=== PATIENT | female | born 1990 ===

== ENCOUNTER 2017-12-11 11:00 | Emergency (ER) | payer BC ==
[2017-12-11 12:45] VITALS: BP 132/81
--- NOTE | 2017-12-11 14:09 | ED ---
Abdominal Pain/Female - HPI Summary HPI Summary: Patient presents to the with CC of right sided abdominal pain yesterday. There was no tenderness to the RLQ but more to the R side body, however she endorses lower abdominal pain bilaterally which is intermittent. She describes this as cramping and similar to her periods pains. She is 4 days late and states she had unprotected sex on 11/25/17. She endorses some nausea and light spotting x 4 days. Hx of kidney stone but denies any back pain or urinary symptoms. Currently asymptomatic. Denies fevers, sweats or chills. - History of Current Complaint Chief Complaint: UCGeneralIllness Stated Complaint: STOMACH,FEVER,NAUSEA Time Seen by Provider: 12/11/17 12:37 Hx Obtained From: Patient Hx Last Menstrual Period: 11/06/18 ?: No Onset/Duration: Sudden Onset Timing: Constant Severity Initially: Moderate Severity Currently: Moderate Pain Intensity: 3 Pain Scale Used: 0-10 Numeric Location: Diffuse, Suprapubic Radiates: No Character: Cramping Aggravating Factor(s): Nothing Alleviating Factor(s): Nothing Associated Signs and Symptoms: Positive: Nausea - Risk Factors Ectopic Risk Factor: Negative Ovarian Torsion Risk Factor: Negative Allergies/Adverse Reactions: Allergies Allergy/AdvReac Type Severity Reaction Status Date / Time Cefaclor [From [facility]] Allergy Unknown Verified 12/11/17 12:38 Reaction Details PMH/Surg Hx/FS Hx/Imm Hx Previously Healthy: Yes Endocrine/Hematology History: Denies: Hx Diabetes Cardiovascular History: Denies: Hx Hypertension, Hx Pacemaker/ICD History: Denies: Hx Dialysis, Hx Renal Disease Sensory History: Denies: Hx Hearing Aid Psychiatric History: Denies: Hx Panic Disorder - Surgical History Surgery Procedure, Year, and Place: WISDOM TEETH - Immunization History Hx Pertussis Vaccination: No Immunizations Up to Date: Unable to Obtain/Confirm Infectious Disease History: No Infectious Disease History: Denies: Traveled Outside the [place] in Last 30 Days - Social History Occupation: Employed Full-time Lives: With Family Alcohol Use: Occasionally Hx Substance Use: No Substance Use Type: Reports: None Hx Tobacco Use: No Smoking Status (MU): Never Smoked Tobacco Review of Systems Constitutional: Negative Negative: Fever, Chills, Fatigue, Skin Diaphoresis Eyes: Negative Cardiovascular: Negative Positive: Abdominal Pain - abdominal cramping bilateral R and L lower quadrants with R side body pain (asymptomatic), Nausea Positive: no symptoms reported, see HPI Musculoskeletal: Negative Neurological: Negative Psychological: Normal All Other Systems Reviewed And Are Negative: Yes Physical Exam Triage Information Reviewed: Yes Vital Signs On Initial Exam: Initial Vitals Temp Pulse Resp BP Pulse Ox 98.9 F 69 16 132/81 100 12/11/17 12:38 12/11/17 12:38 12/11/17 12:38 12/11/17 12:38 12/11/17 12:38 Vital Signs Reviewed: Yes Appearance: Positive: Well-Appearing, Well-Nourished Skin: Positive: Warm, Skin Color Reflects Adequate Perfusion Head/Face: Positive: Normal Head/Face Inspection Eyes: Positive: EOMI, BAYLEE, Conjunctiva Clear Neck: Positive: Supple, No Lymphadenopathy Respiratory/Lung Sounds: Positive: Clear to Auscultation, Breath Sounds Present Cardiovascular: Positive: Normal, RRR, Pulses are Symmetrical in both Upper and Lower Extremities Abdomen Description: Positive: No Organomegaly, Soft, McBurney's Point Tenderness, Other: - no pain on palpation. Negative: CVA Tenderness (R), CVA Tenderness (L), Distended, Guarding, Peritoneal Signs, Pulsatile Mass, Splenomegaly Bowel Sounds: Positive: Present Musculoskeletal: Positive: Normal, Strength/ROM Intact Neurological: Positive: Speech Normal Psychiatric: Positive: Affect/Mood Appropriate AVPU Assessment: Alert Diagnostics - Vital Signs Vital Signs Temp Pulse Resp BP Pulse Ox 12/11/17 12:38 98.9 F 69 16 132/81 100 - Laboratory Lab Results: Lab Results 12/11/17 12/11/17 Range/Units 13:05 13:07 POC Urine Color Yellow POC Urine Clarity Clear POC Urine pH 6.0 (5-9) POC Ur Specif [place] 1.020 (1.010-1.030) POC Urine Protein Negative (Negative) POC Ur Glucose (UA) Negative (Negative) POC Urine Ketones Negative (Negative) POC Urine Blood Trace-intact H (Negative) POC Urine Nitrite Negative (Negative) POC Urine Bilirubin Negative (Negative) POC Urine Urobilinogen 0.2 (Negative) POC U Leukocyte Esteras 1+ H (Negative) POC Ur Test Positive H (Negative) Lab Statement: Any lab studies that have been ordered have been reviewed, and results considered in the medical decision making process. Abdominal Pain Fem Course/Dx - Course Course Of Treatment: Abdominal cramping bilateral R and L lower quadrants with R side body pain (asymptomatic currently.) She is concerned for and ecoptic. obtained and positive. She is given results. US called who states would not be able to see IUP or ectopic at this time. Because she is asymptomatic at this time, I have informed her she is OK to discharge home and to follow up with OBGYN to obtain serial quant levels and assure trending upwards. She is likely 2 weeks and 2 days along based on her history and will be unable to see anything on US. One partner and little chance of STD's. Will defer at this time for pelvic exam, again d/t asymptomatic. Arsen is likely from implantation. She is given safe reglan and encouraged to begin to take vitamins. She is OK for discharge at this time, and VS stable. - Diagnoses Differential Diagnosis: Positive: Provider Diagnoses: Discharge - Discharge Plan Condition: Stable Disposition: HOME Prescriptions: Metoclopramide TAB* [Reglan TAB*] 5 mg PO Q6H #30 tab Patient Education Materials: Ectopic (ED), (ED) Referrals: Lili Rodriguez MD [Primary Care Provider] - Jurgen Hu MD [Medical Doctor] - Additional Instructions: I am not dx you with ectopic - I would just like to give you information since we had discussed this. completion supervisor vitamins immediately Reglan is an anti-nausea medication May take up to four times daily for nausea associated with Referral for OBGYN - call today.
== END 2017-12-11 13:48 | disposition home or self-care (01) ==
LOC: UCCORT 11:00
DX: Z33.1 Pregnant state, incidental (principal); R11.0 Nausea; R10.30 Lower abdominal pain, unspecified; Z87.442 Personal history of urinary calculi; Z88.1 Allergy status to other antibiotic agents
CPT/HCPCS: 81003; 84702; 87086; 99212; G0463